=== PATIENT | male | born 1940 | race Caucasian/White ===

== ENCOUNTER 2016-10-23 10:23 | Inpatient (IN) | payer OTHER ==
[~2016-10-23] VITALS: Ht 172.7 cm; Wt 65.8 kg
[~2016-10-23 10:23] MED LIST: ARICEPT PO; CLINDAMYCIN HC300 MG PO; FER300 PO; LAC PO; NEU300 PO; NOR5
--- NOTE | 2016-10-23 11:17 | NUR ---
C/O UNABLE TO WALK TODAY, BILATERAL HAND SHAKING, GENERALIZED WEAKNESS AND PROGRESSIVELY GETTING WORSE, HX PARKINSON'S, LABS DRAWN AND SENT TO LAB
--- NOTE | 2016-10-23 11:18 | NUR ---
20 G SL RIGHT AC, PATENT
[2016-10-23 11:46] LABS: PLATELET COUNT 285 x10^3mcL (130-400); RED CELL DISTRIBUTION WIDTH 13.8 % (11.5-14.5)
[2016-10-23 11:58] LABS: ALBUMIN 3.6 g/dL (3.4-5.0); ALKALINE PHOSPHATASE 85 U/L (46-116); ALT/SGPT 18 U/L (16-63); AST/SGOT 19 U/L (15-37); BILIRUBIN TOTAL 0.54 mg/dL (0.20-1.00); CALCIUM 8.4 mg/dL (8.5-10.1); CARBON DIOXIDE 26.1 mmol/L (21-32); CHLORIDE SERUM 102 mmol/L (98-107); GLUCOSE SERUM 109 mg/dL (74-106); SODIUM SERUM 137 mmol/L (136-145); TOTAL PROTEIN, SERUM 7.4 g/dL (6.4-8.2)
[2016-10-23 12:01] LABS: microscopic required? YES; urine erythrocyte TRACE (NEGATIVE)
[2016-10-23 12:01] LABS: POTASSIUM SERUM 2.9 mmol/L (3.5-5.1)
--- NOTE | 2016-10-23 12:07 | NUR ---
RESTING COMFORTABLY, DENIES PAIN OR SOB
[2016-10-23 12:19] LABS: BAND NEUTROPHIL 4 % (0-10); BASOPHIL 0 % (0-2); MONOCYTE 1 % (0-7); SEGMENTED NEUTROPHILS 91 % (37-75)
[2016-10-23 12:20] LABS: PLATELET MORPHOLOGY PLATELETS NORMAL; rbc morphology (normal/abnorm) ABNORMAL (NORMAL)
[2016-10-23 12:59] LABS: CK-MB 0.5 ng/mL (0-3.6)
--- NOTE | 2016-10-23 14:00 | NUR ---
RESTING COMFORTABLY, DENIES PAIN OR SOB
[2016-10-23 15:05] VITALS: BP 128/61
--- NOTE | 2016-10-23 15:10 | NUR ---
RECEIVED PT FROM ED VIA JOSÉ. ORIENTED PT TO ROOM AND SURROUNDINGS. IV NOTED TO RAC PATENT AND INTACT .TELE 3 PLACED ON PT READING NSR. INSTRUCTED PT ON THE USE OF CALL LIGHT FOR ASSISTANCE. ENDORSED PT TO PRIMARY NURSE KEVIN
--- NOTE | 2016-10-23 15:18 | NUR ---
RESUME CARE. COOOLING MEASURES INITIATED.
--- NOTE | 2016-10-23 15:32 | NUR ---
TEMP 102.4, TYLENOL GIVEN AND COOLING MEASURES MAINTAINED.
[2016-10-23 16:00] LABS: MAGNESIUM 1.7 mg/dL (1.8-2.4); PHOSPHOROUS 1.9 mg/dL (2.5-4.9)
[2016-10-23 16:03] LABS: T3 TOTAL 0.97 ng/mL
[2016-10-23 16:11] LABS: FREE T4 1.23 ng/dL (0.76-1.46); FREE THYROXINE INDEX 3.5 ug/dL (1.4-4.5); T4(THYROXINE) 9.6 ug/dL (4.7-13.3)
[2016-10-23 16:16] LABS: CHOLESTEROL/HDL RATIO 2.5
--- NOTE | 2016-10-23 17:47 | NUR ---
TOLERATED MEDICATION WELL. AT BEDSIDE. NO DISTRESS NOTED
[2016-10-23 18:34] VITALS: BP 125/71
--- NOTE | 2016-10-23 19:10 | NUR ---
NURSING CO-SIGN THE DOCUMENTATION ENTERED BY THE RN DEVIN HAS BEEN REVIEWED. REVIEWED/CO-SIGNED BY: Samra Montiel DOCUMENTATION DONE BY:BERTO SHARPE
--- NOTE | 2016-10-23 19:27 | NUR ---
PT RESTING. NO DISTRESS NOTED, NO SOB NOTED WILL ENDORSE TO NIGHT NURSE
--- NOTE | 2016-10-23 19:30 | NUR ---
PT APPEARS SLIGHTLY DROWSY, BUT AROUSABLE. VERBAL IN MONTSERRATIAN WITH CLEAR SPEECH. AOX3. 98% RA. DENIES ANY SOB. LUNGS CLEAR BILATERALLY. NO S/S OF RESPIRATORY DISTRESS NOTED. DENIES ANY CHEST PAIN. ON TELE 3, SR WITH 1ST DEGREE. BOWEL SOUNDS ACTIVE. ABD SOFT AND FLAT. SKIN WARM AND DRY. IV TO RIGHT AC PATENT AND INTACT. NO S/S OF INFECTION NOTED. NOTED WITH 1+ EDEMA TO BLE. PULSES PALPABLE. DENIES ANY PAIN AT THIS TIME. NO S/S OF DISTRESS NOTED. CALL LIGHT WITHIN REACH. WILL CONTINUE TO MONITOR.
[2016-10-23 21:57] VITALS: BP 155/73
[2016-10-23 23:38] VITALS: BP 120/60
--- NOTE | 2016-10-23 23:44 | NUR ---
NOTED PT HAVE 13 SEC RUN OF VTACH. PT ALERT AND VERBAL. DENIES ANY CHEST PAIN. NO S/S OF DISTRESS NOTED. IV PATENT AND INFUSING WELL. COOLING MEASURES IN PLACE. VS: T 102.0, TX 81, BP 120/60, MAP 75, 95% RA. DR. JHA NOTIFIED AND AWARE.
--- NOTE | 2016-10-24 00:34 | NUR ---
PT RESTING IN BED WITH EYES CLOSED. BREATHING EQUAL AND UNLABORED. NO S/S OF RESPIRATORY DISTRESS NOTED. IV PATENT AND INFUSING WELL. RECHECKED TEMP 98.4. NO S/S OF DISTRESS OR DISCOMFORT NOTED AT THIS TIME. CALL LIGHT WITHIN REACH. WILL CONTINUE TO MONITOR.
[2016-10-24 01:22] LABS: CALCIUM 7.7 mg/dL (8.5-10.1); CARBON DIOXIDE 24.1 mmol/L (21-32); CHLORIDE SERUM 108 mmol/L (98-107); CREATININE SERUM 0.9 mg/dL (0.7-1.3); GLUCOSE SERUM 104 mg/dL (74-106); POTASSIUM SERUM 3.6 mmol/L (3.5-5.1); SODIUM SERUM 137 mmol/L (136-145)
--- NOTE | 2016-10-24 02:20 | NUR ---
DR. JHA NOTIFIED AND AWARE OF PT'S POTASSIUM LEVEL 3.6. LAST DOSE POTASSIUM NOT GIVEN D/T POTASSIUM LEVEL NORMAL PER DR. JHA.
[2016-10-24 05:28] VITALS: BP 152/55
--- NOTE | 2016-10-24 05:56 | NUR ---
PT SLEPT WELL THROUGH THE NIGHT. BREATHING EQUAL AND UNLABORED. NO S/S OF RESPIRATORY DISTRESS NOTED ON ROOM AIR. IV PATENT AND INFUSING WELL. NO S/S OF DISTRESS NOTED. GOOD PERICARE RENDERED. REPOSITIONED FOR COMFORT. RESTING WITH RELAXED FACIAL FEATURES. CALL LIGHT WITHIN REACH. WILL CONTINUE TO MONITOR.
[2016-10-24 06:46] LABS: BASOPHIL % 0 % (0-2); CALCIUM 7.9 mg/dL (8.5-10.1); CARBON DIOXIDE 26.5 mmol/L (21-32); CHLORIDE SERUM 108 mmol/L (98-107); CREATININE SERUM 0.8 mg/dL (0.7-1.3); GLUCOSE SERUM 96 mg/dL (74-106); MAGNESIUM 2.1 mg/dL (1.8-2.4); PHOSPHOROUS 2.2 mg/dL (2.5-4.9); PLATELET COUNT 235 x10^3mcL (130-400); POTASSIUM SERUM 3.9 mmol/L (3.5-5.1); SODIUM SERUM 136 mmol/L (136-145)
--- NOTE | 2016-10-24 07:25 | NUR ---
RECEIVED Pt. AAOX3, RESPIRATIONS EVEN AND UNLABORED. DENIES PAIN/DISCOMFORT. NO DISTRESS NOTED. TELE IN PLACE 1ST DEGREE AV BLOCK HR 80 DENIES CHEST PAIN/PRESSURE. IVF RUNNING TO IV AT RIGHT AC PATENT AND INTACT. RIGHT HAND SHAKINESS NOTED. BED LOW/LOCKED. CALL LIGHT IN REACH. WILL CONTINUE TO MONITOR.
[2016-10-24 10:00] VITALS: BP 158/80
--- NOTE | 2016-10-24 10:39 | NUR ---
Pt. TEMP OF 100.4, COOLING MEASURES STARTED AND TYLENOL ADMINISTERED PER EMAR.
[2016-10-24] MEDS ORDERED: VITAMIN D32000 I2 PO (10:46)
[2016-10-24] MEDS ORDERED: FUROSEMIDE20 MG PO (10:47)
[2016-10-24] MEDS ORDERED: SINEMET 25-1001 TAB PO (10:48)
[2016-10-24] MEDS ORDERED: TAMSULOSIN HYD0.4 M1 PO (10:50)
[2016-10-24] MEDS ORDERED: MYS50 PO (10:51)
--- NOTE | 2016-10-24 12:20 | NUR ---
RECHECKED TEMP AND WENT DOWN TO 99.9, COOLING MEASURES STILL IN PLACE.
--- NOTE | 2016-10-24 13:00 | NUR ---
Pt. C/O DRY EYES NOTIFIED DR. WILSON AWAITING ORDERS.
[2016-10-24 14:18] VITALS: BP 125/66
--- NOTE | 2016-10-24 16:54 | NUR ---
Pt. C/O DRY EYES ARTIFICIAL TEARS ADMINISTERED BOTH EYES PER EMAR, Pt. VERBALIZED RELIEF.
[2016-10-24 18:14] VITALS: BP 132/78
--- NOTE | 2016-10-24 18:16 | NUR ---
Pt. AAOX3 RESPIRATIONS EVEN AND UNLABORED. DENIES PAIN/DISCOMFORT. NO DISTRESS NOTED. IVF RUNNING TO IV AT LEFT AC PATENT AND INTACT. TELE IN PLACE. RUE SHAKINESS STILL NOTED, SINEMET ADMINISTERED PER EMAR. SPOUSE AT BEDSIDE. TOLERATED DIET WELL, BED LOW/LOCKED. CALL LIGHT IN REACH.
--- NOTE | 2016-10-24 19:44 | NUR ---
RECEIVED PT FROM PREVIOUS SHIFT. PT A/OX4. SITTING UP IN CHAIR AT BEDSIDE. DENIES PAIN. DENIES SOB ON RA. IV PATENT AND INFUSING WELL WITH NO S/S OF INFILTRATION. CALL LIGHT WITHIN REACH, BED IN LOW POSITION. WILL CONTINUE TO MONITOR.
[2016-10-24 21:47] VITALS: BP 167/84
--- NOTE | 2016-10-25 01:01 | NUR ---
PT RESTING AT THIS TIME IN NO ACUTE DISTRESS. RR EVEN AND UNLABORED. IV PATENT. CALL LIGHT WITHIN REACH, BED IN LOW POSITION. WILL CONTINUE TO MONITOR.
--- NOTE | 2016-10-25 06:01 | NUR ---
NITRO GIVEN SL FOR BP 178/91 PRN PER EMAR. WILL CONTINUE TO MONITOR
--- NOTE | 2016-10-25 06:40 | NUR ---
BP 171/88 AFTER NITRO ADMINISTRATION. PT DENIES PAIN. DENIES ALEGRIA. PAGEGATE SENT TO DR JHA AT THIS TIME, WILL CONTINUE TO MONITOR.A
--- NOTE | 2016-10-25 07:20 | NUR ---
RECEIVED PT IN BED A/A/OX4 DENIES ALEGRIA. PT NOTED WITH TREMORS GREATER TO RT ARM, WITH HX OF PARKINSONS. RESP EVEN AND UNLABORED WITH CLEAR BS BILAT. DENIES ANY SOB/CP/PRESSURE AT THIS TIME. NOTED WITH TRACE EDEMA TO BLE. IVF NS AT 100ML/HR TO RAC. ABD SOFT, NONTENDER WITH ACTIVE BS X4. DENIES ANY N/V AT THIS TIME. VOIDING FREELY WITH OCC STRESS INCONTINENCE. NOTED WITH SMALL DRY SKIN TEAR TO LLE BELOW KNEE. AMBULATORY WITH ASSISTANCE, UP WITH PT. CALL LIGHT IN REACH NEEDS ATTENDED TO.
--- NOTE | 2016-10-25 09:25 | NUR ---
NOTIFIED ATTENDING DR. WILSON THAT PT HAS ELEVATION IN B/P, BUT HOME MEDS FOR HTN WHERE NOT CONTINUED. MD TO REVIEW MEDS AND ORDER ACCORDINGLY. WILL CONT TO MONITOR.
[2016-10-25 09:59] VITALS: BP 165/86
--- NOTE | 2016-10-25 10:10 | NUR ---
MESSAGE SENT TO DR. WILSON VIA PAGE GATE TO INQUIRE ABOUT B/P MES. MADE AWARE LATEST B/P 165/86. AWAITING ORDERS.
[2016-10-25 11:15] VITALS: Ht 172.7 cm; Wt 65.8 kg
[2016-10-25 14:35] VITALS: BP 144/80
--- NOTE | 2016-10-25 16:30 | NUR ---
PT RESTING AT THIS TIME. DENIES ANY DISCOMFORT. CALL LIGHT IN REACH NEEDS ATTENDED TO.
[2016-10-25 18:02] VITALS: BP 156/77
--- NOTE | 2016-10-25 18:30 | NUR ---
PT RESTING COMFORTABLY AT THIS TIME. DENIES ANY DISCOMFORT. CALL LIGHT IN REACH NEEDS ATTENDED TO. IVF INFUSING. CALL LIGHT IN REACH NEEDS ATTENDED TO.
--- NOTE | 2016-10-25 19:45 | NUR ---
PT. AWAKE, ALERT, ORIENTED X4. SITTING UP IN CHAIR NEXT TO BED. DENIES HEADACHE OR DIZZINESS. BREATH SOUNDS CLEAR THROUGHOUT LUNG LUNA, RESP. EVEN, UNLABORED. NO SOB NOTED.TRACE EDEMA TO BLE. PEDAL PULSES MODERATE. ABD. SOFT AND ROUND, BOWEL SOUNDS ACTIVE. DENIES ABD. PAIN, DENIES NAUSEA. IVF INFUSING WELL, SITE WNL. CALL LIGHT WITHIN REACH. SON AT BEDSIDE.
[2016-10-25 22:00] VITALS: BP 143/73
[2016-10-26 05:47] VITALS: BP 137/83
[2016-10-26 06:20] LABS: BASOPHIL % 0.7 % (0-2); PLATELET COUNT 286 x10^3mcL (130-400); RED CELL DISTRIBUTION WIDTH 14.1 % (11.5-14.5)
[2016-10-26 06:34] LABS: CALCIUM 8.6 mg/dL (8.5-10.1); CARBON DIOXIDE 26.4 mmol/L (21-32); CHLORIDE SERUM 108 mmol/L (98-107); CREATININE SERUM 0.9 mg/dL (0.7-1.3); GLUCOSE SERUM 97 mg/dL (74-106); PHOSPHOROUS 2.8 mg/dL (2.5-4.9); POTASSIUM SERUM 3.7 mmol/L (3.5-5.1); SODIUM SERUM 143 mmol/L (136-145)
--- NOTE | 2016-10-26 06:34 | NUR ---
PT. HAD UNEVENTFUL NIGHT. NO C/O PAIN THROUGHOUT NIGHT. PT. SITTING UP IN CHAIR AT BEDSIDE. PT. ADVICED THAT SITTING IN CHAIR TOO LONG WILL ADD TO THE SWELLING IN HIS BLE. PT. VERBALIZED UNDERSTANDING. RECEIVED NEW ORDERS TO DECREASE IVF RATE TO 30CC/HR. CALL LIGHT WITHIN REACH. WILL ENDORSE PT. CARE TO INCOMING NURSE.
--- NOTE | 2016-10-26 07:40 | NUR ---
RC'D PT SITTING IN CHAIR WITH NO APPARENT SIGNS OF DISTRESS. A/A/O/X4, SPEECH CLEAR AND AAPPROPRIATE. ON TELE 3 WTIH SR WITH 1ST DEGREE BLOCK. PALP PULSES, BLE TRACE EDEMA PRESENT. RESPIRATIONS EQUAL AND UNLABORED BILAT. LUNGS CLEAR TO AUSCULTATION. DENIES SOB. ACTIVE BS. ABDOMEN SOFT AND NONTENDER. DENIES N/V. VOIDS FREELY, PT REPORTS SLIGHT DISCOMFORT AT TIMES. [place] [facility] [place]. FINE TREMORS NOTED TO BUE. SKIN W/D. SKIN TEAR NOTED TO LLE WITH OLD SCAB PRESENT, JANICE. PT DENIES PAIN AT THIS TIME. IV RUNNING NS AT 30ML/HR, WNL. PT IS CALM AND COOPERATIVE. ROOM FREE OF CLUTTER. PT EDUCATED ON USING CALL LIGHT WHEN NEEDING ASSISTANCE OUT OF BED. CALL LIGHT IN REACH. WILL CONTINUE TO MONITOR.
--- NOTE | 2016-10-26 07:43 | NUR ---
echocardiogram pending- patient with tray
[2016-10-26 09:28] VITALS: BP 149/88
--- NOTE | 2016-10-26 10:19 | NUR ---
PHYSICAL THERAPY DAILY NOTES CO-SIGN All documentation done by the Driving School Instructor for 10/25/16 has been reviewed. I agree with the documentation. Reviewed/Co-Signed by: Arleth Baldwin PT Documentation Done by:DEBORAH MAYNARD LOCKMAKER POC REVIEWED W/ LOCKMAKER; WILL BENEFIT W/ P.T. AFTER ACUTE STAY.
[2016-10-26] MEDS ORDERED: MAC100 PO (14:16)
[2016-10-26] MEDS ORDERED: BD LACTINEX1.4 MG PO (14:17)
[2016-10-26 15:07] VITALS: BP 149/88
--- NOTE | 2016-10-26 16:04 | NUR ---
PT RESTING IN CHAIR WITH FAMILY PRESENT AT BEDSIDE. NO APPARENT SIGNS OF DISTRESS. CALL LIGHT IN REACH. WILL CONTINUE TO MONITOR.
--- NOTE | 2016-10-26 16:32 | NUR ---
PHYSICAL THERAPY DAILY NOTES CO-SIGN All documentation done by the Cnc Router Operator for 10/26/16 has been reviewed. I agree with the documentation. Reviewed/Co-Signed by: Arleth Baldwin PT Documentation Done by:DEBORAH MAYNARD O AND M SUPERVISOR POC REVIEWED W/ O AND M SUPERVISOR.
--- NOTE | 2016-10-26 16:50 | NUR ---
PT PROVIDED WITH DC HOME INSTRUCTIONS. GIVEN MEDICATION EDUCATION. MADE AWARE PRESCRIPTIONS HAVE BEEN SENT TO PT'S SELECTED PHARMACY. MADE AWARE OF FOLLOW UP APPT WITH PCP. INSTRUCTED ON IMPORTANCE OF COMPLETING ANTIBIOTIC TX ORDERED. MADE AWARE OF WORSENING SIGNS AND SYMPTOMS TO RETURN TO ED OR REPORT TO PCP. PT VERBALIZED UNDERSTANDING OF INSTRUCTIONS. TELE AND IV DC'D, CATHETER INTACT. PT TRANSPORTED VIA WC TO THE LOBBY WITH ALL PERSONAL BELONGINGS IN HAND ACCOMPANIED BY DIMENSION WAREHOUSE SUPERVISOR AND FAMILY. FREE OF ANY APPARENT DISTRESS.
== END 2016-10-26 16:56 | disposition home health service, planned readmission (86) | DRG 689 ==
LOC: ED 10:23 → DU 13:58
PROVIDERS: Emergency Medicine; Family Medicine; ADMIT Family Medicine
DX: N39.0 Urinary tract infection, site not specified (principal); N17.0 Acute kidney failure with tubular necrosis; I50.43 Acute on chronic combined systolic (congestive) and diastolic (congestive) heart failure; E87.6 Hypokalemia; G20 Parkinson's disease; E83.39 Other disorders of phosphorus metabolism; E83.42 Hypomagnesemia; E83.51 Hypocalcemia; I11.0 Hypertensive heart disease with heart failure; R73.03 Prediabetes; D64.9 Anemia, unspecified; N40.0 Benign prostatic hyperplasia without lower urinary tract symptoms; Z68.22 Body mass index [BMI] 22.0-22.9, adult
CPT/HCPCS: 82962; 83880; 84439; 97110-GP; 97116-GP; 97530-GP; J0696; J3475; J3480; J7030; Q0092

== ENCOUNTER 2018-09-03 11:41 | Inpatient (IN) | payer OTHER ==
[~2018-09-03] VITALS: Ht 170.2 cm; Wt 79.8 kg
[~2018-09-03 11:41] MED LIST changes: +BD LACTINEX1.4 MG PO; +FUROSEMIDE20 MG PO; +MAC100 PO; +MYS50 PO; +SINEMET 25-1001 TAB PO; +TAMSULOSIN HYD0.4 M1 PO; +VITAMIN D32000 I2 PO
[2018-09-03 11:53] VITALS: Ht 170.2 cm; Wt 79.8 kg
--- NOTE | 2018-09-03 12:17 | NUR ---
PT HAS LOWER EXTREM GEN WEAKNESS WITH DRY FLAKY SKIN AND +4 PITTING EDEMA. PULSES SCANT DUE TO SWELLING AND CAP REFILL > 3 SEC. PER FAMILY AT BEDSIDE PT HAS BECOME INCREASED GEN WEAKNESS FOR OVER THE LAST WEEK. PT COLD SPRINGS AND HAS HX OF PARKINSONS AND TREMORS NORMAL PER FAMILY. AWAITING MD MATHIAS PT CONNECTED TO PANEL MACHINE SETTER AND VSS UPON ARRIVAL. ARRIVED TO BED BY W/C
--- NOTE | 2018-09-03 12:50 | NUR ---
DR PARRISH AT BEDSIDE FOR EVAL
[2018-09-03 12:58] LABS: microscopic required? NO
[2018-09-03 13:12] LABS: CALCIUM 8.3 mg/dL (8.5-10.1); CARBON DIOXIDE 30.4 mmol/L (21-32); CHLORIDE SERUM 108 mmol/L (98-107); GLUCOSE SERUM 131 mg/dL (74-106); POTASSIUM SERUM 3.5 mmol/L (3.5-5.1); SODIUM SERUM 145 mmol/L (136-145)
[2018-09-03 13:13] LABS: BASOPHIL % 0.8 % (0-2); PLATELET COUNT 273 x10^3mcL (130-400); RED CELL DISTRIBUTION WIDTH 13.9 % (11.5-14.5)
[2018-09-03 13:25] LABS: ALKALINE PHOSPHATASE 72 U/L (46-116); ALT/SGPT 31 U/L (16-63); AST/SGOT 36 U/L (15-37); BILIRUBIN TOTAL 0.4 mg/dL (0.20-1.00); FREE T4 1.21 ng/dL (0.76-1.46); TOTAL PROTEIN, SERUM 6.4 g/dL (6.4-8.2)
[2018-09-03 13:27] LABS: ALBUMIN 3.2 g/dL (3.4-5.0)
[2018-09-03 13:53] LABS: urine erythrocyte NEGATIVE (NEGATIVE)
--- NOTE | 2018-09-03 15:17 | NUR ---
US AT BEDSIDE
--- NOTE | 2018-09-03 15:49 | NUR ---
BP 213/97 DR PARRISH AWARE AND IN TO TALK WITH PT
--- NOTE | 2018-09-03 17:01 | NUR ---
JARVIS 170/76
--- NOTE | 2018-09-03 17:35 | NUR ---
BP NOW 120/67
--- NOTE | 2018-09-03 18:15 | NUR ---
PT TO BE TRANSFERRED TO [facility] AND PT AND FAMILY MEMBER AT BEDSIDE AWARE. AWAITING BED AT [facility]
[2018-09-03] MEDS ORDERED: LISINOPRIL2.5 MG (19:41)
--- NOTE | 2018-09-03 19:44 | NUR ---
REPORT GIVEN TO IGNACIA RETORT ENGINEER NURSE
--- NOTE | 2018-09-03 19:55 | NUR ---
RECEIVED PT VIA GUERNEY FROM E/D, ACCOMPANIED BY RN AND 2 TRANSPORTERS. PT A/A/O X 2 (PERSON, PURPOSE), K[place]AK[place]-SPEAKING, CALM, COOPERATIVE; NOTED OU POOR VISION AND CLEAR DRAINAGE, UNABLE TO KEEP EYES OPEN WIDE. GENERALIZED WEAKNESS, USES W/C AT HOME, C/O INTERMITTENT SHARP PAIN TO BLE 6/10 EXACERBATED BY MOVEMENT, RELIEVED BY RESTING AND PAIN MEDICATION. MARIBEL RADIAL AND PEDAL PULSES PRESENT, BLE +4 PITTING EDEMA ANTONI TO FEET, CAP REFILL > 3 SECS, SCD BY BEDSIDE. BUE DISCOLORATION, DEVELOPER EVANGELIST, AND MARIBEL FEET DRY, FLAKY SKIN, DEVELOPER EVANGELIST. DENIES CHEST PAIN OR DISCOMFORT AT THIS TIME. NO ACUTE RESPIRATORY DISTRESS NOTED. VOIDS FREELY, EPISODES OF INCONTINENCE. IV SITE RFA 20G, CDI. ORIENTED PT TO ROOM, BED CONTROLS, CALL LIGHT SYSTEM. SIDE RAILS UP X 2, BED IN LOW POSITION. ROOM MAINTAINED CONTACT ISOLATION D/T HX MDRO E COLI OF URINE. WILL ENDORSE TO DANNIE HOWARD.
--- NOTE | 2018-09-03 20:05 | NUR ---
PT WHEELED UPSTAIRS TO TELE FLOOR TO ROOM 219A AND ESCORTED BY PETE COBURN AND CAMILLE PANDEY. NO INCIDENT NOTED
[2018-09-03 20:28] VITALS: BP 160/83
[2018-09-03 20:29] LABS: AMPHETAMINE QUAL UR NONE DETECTED (See below)
[2018-09-03 20:34] LABS: CHOLESTEROL/HDL RATIO 2.9; PHOSPHOROUS 3.7 mg/dL (2.5-4.9)
--- NOTE | 2018-09-03 23:13 | NUR ---
Resting at this time. No respiratory distress noted. Appears comfortable. All due meds given and tolerated. Scd in placed. Call light within reach. Will cont.to monitor.
--- NOTE | 2018-09-04 05:11 | NUR ---
Afebrile. No significant change in condition noted. No cues of pain. Weight shift assistance provided. Kept comfortable. In no apparent distress. Contact isolation, proper use of PPE and good hand hygiene observed.
[2018-09-04 06:10] VITALS: BP 160/85
[2018-09-04 06:21] LABS: BASOPHIL % 0.6 % (0-2); PLATELET COUNT 252 x10^3mcL (130-400); RED CELL DISTRIBUTION WIDTH 13.9 % (11.5-14.5)
--- NOTE | 2018-09-04 08:00 | NUR ---
ALERT TO SELF AND PLACE. MOSTLY JAPANESE SPEAKING. BREATHING FREELY ON RA. NO C/O PAIN. PULLED UP IN BED FOR BREAKFAST. NS INFUSING 100 CC HOUR TO RT FA. CONTACT ISOLATION FOR HX MDRO AND ECOLI URINE. NOTED HAND TREMORS. GENERALIZED WEAKNESS. WEARING SCD'S. CALL LIGHT WITHIN REACH. BED IN LOW POSITION. URINAL CLOSE BY. BED ALARM ON.
[2018-09-04 09:20] VITALS: BP 180/83
[2018-09-04 16:42] VITALS: BP 121/56
--- NOTE | 2018-09-04 18:52 | NUR ---
PT HAS BEEN CALM THIS SHIFT. NO C/O PAIN. UP WITH P.T. USING WALKER. UNSTEADY. CONTINUES TO HAVE GENERALIZED WEAKNESS. SS FOR SNF PLACEMENT. ASSIST WITH ALL ADL'S. CALL LIGHT WITHIIN REACH.NS INFUSING 100 CC HOUR.CONTACT ISO. WEARING SCD'S.
--- NOTE | 2018-09-04 19:29 | NUR ---
RECEIVED PT FROM DAY SHIFT RN. PT ALERT ORIENTED TO SELF, PT CONFUSED. MED SURG PT DENIES ANY PAIN. BREATHING EVEN AND UNLABORED ON RA WITH NO SOB NOTED. IV RFA PATENT,INFUSING WELL WITH NO SIGNS OF INFILTRATION NOTED. BLE EDEMA NOTED. SCDS IN PLACE. BUE ECCHYMOSIS. NO SIGNS OF ACUTE DISTRESS NOTED. CALL BUTTON WITHIN REACH. SAFETY PRECAUTIONS IN PLACE. WILL CONTINUE TO MONITOR.
[2018-09-04 20:13] VITALS: BP 137/62
--- NOTE | 2018-09-04 21:32 | NUR ---
PLACED PT ON TELE MONITOR #[id number] ORDERED. NSR PER MONITOR HR 63. NO SIGNS OF ACUTE DISTRESS.
--- NOTE | 2018-09-04 23:44 | NUR ---
PT RESTING. BREATHING EVEN AND UNLABORED, NO SIGNS OF DISTRESS NOTED. IV PATENT, INFUSING WELL. CALL BUTTON WITHIN REACH. SAFETY PRECAUTIONS IN PLACE. WILL CONTINUE TO MONITOR.
--- NOTE | 2018-09-05 01:57 | NUR ---
ROUNDS MADE, PT RESTING. PT BREATHING EVEN AND UNLABORED, NO SOB NOTED. IV PATENT, INFUSING WELL. NO SIGNS OF DISTRESS. CALL BUTTON WITHIN REACH. SAFETY PRECAUTIONS IN PLACE. WILL CONTINUE TO MONITOR.
--- NOTE | 2018-09-05 03:59 | NUR ---
PT AWAKE, DENIES PAIN. BREATHING EVEN AND UNLABORED. NO SIGNS OF DISTRESS NOTED. CALL BUTTON WITHIN REACH. SAFETY PRECAUTIONS IN PLACE. WILL CONTINUE TO MONITOR.
[2018-09-05 05:34] VITALS: BP 168/75
--- NOTE | 2018-09-05 06:00 | NUR ---
DR PACHECO MADE AWARE PT BP 168/75 WITH HR 52, NO NEW ORDERS AT THIS TIME.
--- NOTE | 2018-09-05 06:21 | NUR ---
PT SLEPT MOST OF THE NIGHT WITH NO SIGNS OF DISTRESS. BREATHING EVEN AND UNALBORED ON RA WITH NO SOB NOTED. IV PATENT, INFUSING WELL WITH NO SINGS OF INFILTRATION. TURN AND REPOSITIONED EVERY TWO HOURS AND NEEDED. MEDICATED PER EMAR. CALL BUTTON WITHIN REACH. SAFETY PRECAUTIONS IN PLACE. WILL CONTINUE TO MONITOR AND ENDORSE CARE TO DAY SHIFT RN.
[2018-09-05 06:27] LABS: BASOPHIL % 0.4 % (0-2); PLATELET COUNT 247 x10^3mcL (130-400); RED CELL DISTRIBUTION WIDTH 13.7 % (11.5-14.5)
--- NOTE | 2018-09-05 06:32 | NUR ---
PER DR PACHECO TO GIVE LISINOPRIL AT THIS TIME.
[2018-09-05 06:41] LABS: CALCIUM 8.3 mg/dL (8.5-10.1); CARBON DIOXIDE 26.9 mmol/L (21-32); CHLORIDE SERUM 105 mmol/L (98-107); CREATININE SERUM 0.8 mg/dL (0.7-1.3); GLUCOSE SERUM 93 mg/dL (74-106); MAGNESIUM 1.8 mg/dL (1.8-2.4); PHOSPHOROUS 3.3 mg/dL (2.5-4.9); POTASSIUM SERUM 3.7 mmol/L (3.5-5.1); SODIUM SERUM 141 mmol/L (136-145)
--- NOTE | 2018-09-05 07:30 | NUR ---
PT AWAKE, BREATHING EVEN AND UNLABORED. NO SIGNS OF DISTRESS NOTED. SAFETY PRECAUTIONS IN PLACE. ENDORSED CARE TO DAY SHIFT RN, ALL QUESTIONS ADDRESSED.
--- NOTE | 2018-09-05 07:39 | NUR ---
RECEIVED PATIENT FROM DANNIE DOE. PATIENT SEATED IN BED AT THIS TIME. A/OX1-2 PERSON, TIME. DENIES ANY PAIN AT THIS TIME. WILL CONTINUE TO MONITOR, NOTIFIED THAT PATIENT BP IS ELEVATED WHILE HR IS LOW. DR DEJESUS AWARE. WILL RECHECK BP. CALL LIGHT IN REACH AT THIS TIME.
[2018-09-05 07:53] VITALS: BP 188/81
--- NOTE | 2018-09-05 10:05 | NUR ---
DR MCCONNELL AND DR HILL IN TO SPEAK WITH PATIENT. MARINO CROW PRESENT FOR TRANSLATION. POSSIBLE DC TODAY TO SNF PENDING CASE MANAGEMENT. PATIENT VERBALIZES UNDERSTANDING. MILD COMPLAINTS OF LEG NUMBESS, REPOSITIONED PATIENT AND DR MCCONNELL AWARE. CALL LIGHT IN REACH AT THIS TIME.
[2018-09-05 12:13] VITALS: BP 147/62
--- NOTE | 2018-09-05 13:01 | NUR ---
PATIENT IN BED RESTING. AT BEDSIDE. NO SIGNS OF PAIN OR DISTRESS. AWAITING FOR CAUSTIC PLANT WORKER RAFA TO COMPLETE ARRANGEMENTS TO SNF. CALL LIGHT IN REACH AT THIS TIME.
[2018-09-05 13:34] VITALS: BP 147/62
[2018-09-05] MEDS ORDERED: GABAPENTIN100 M2 PO (14:40)
--- NOTE | 2018-09-05 16:23 | NUR ---
[facility]SP[facility] IN TO GREEN ENERGY MARKETING ANALYST PATIENT. REPORT GIVEN TO TRANSPORT & NURSE TERRANCE AT [facility]. PATIENT TELEMETRY REMOVED AND RETURNED TO [facility]. TRANSFER PAPERS SIGNED BY PATIENT AND PATIENT . PATIENT HAS COMPLAINTS OF PAIN IN BLE AND PRN MORPHINE 2 MG IVP ADMINISTERED. PATIENT WITH PATIENT BELONGINGS AND COPIES OF TRANFERS PACKET. PATIENT VIA [facility] OFF UNIT WITH [facility], TRANSPORT GIVEN PATIENT PACKET.
== END 2018-09-05 17:47 | DRG 57 ==
LOC: ED 11:41 → MU 18:45 → DU 09-04 21:30
PROVIDERS: Emergency Medicine; ADMIT Internal Medicine
DX: G20 Parkinson's disease (principal); E44.0 Moderate protein-calorie malnutrition; F02.80 Dementia in other diseases classified elsewhere, unspecified severity, without behavioral disturbance, psychotic disturbance, mood disturbance, and anxiety; M62.59 Muscle wasting and atrophy, not elsewhere classified, multiple sites; I10 Essential (primary) hypertension; D64.9 Anemia, unspecified; Z68.27 Body mass index [BMI] 27.0-27.9, adult
CPT/HCPCS: 83880; 84439; 97116-GP; G0378; J2270; J7030; Q0092

== ENCOUNTER 2019-02-02 12:03 | Emergency (ER) | payer OTHER ==
[~2019-02-02] VITALS: Ht 167.6 cm; Wt 68.0 kg
[~2019-02-02 12:03] MED LIST changes: +GABAPENTIN100 M2 PO; +LISINOPRIL2.5 MG
[2019-02-02 12:24] VITALS: Ht 167.6 cm; Wt 68.0 kg
[2019-02-02 14:11] LABS: CALCIUM 8.2 mg/dL (8.5-10.1); CARBON DIOXIDE 28.7 mmol/L (21-32); CHLORIDE SERUM 106 mmol/L (98-107); CREATININE SERUM 1.1 mg/dL (0.7-1.3); GLUCOSE SERUM 150 mg/dL (74-106); POTASSIUM SERUM 3.8 mmol/L (3.5-5.1); SODIUM SERUM 143 mmol/L (136-145)
[2019-02-02 14:16] LABS: ALKALINE PHOSPHATASE 86 U/L (46-116); ALT/SGPT 22 U/L (16-63); AST/SGOT 35 U/L (15-37); BILIRUBIN TOTAL 0.4 mg/dL (0.20-1.00); CHOLESTEROL 175 mg/dL (<200); TOTAL PROTEIN, SERUM 6.7 g/dL (6.4-8.2)
[2019-02-02 14:20] LABS: BASOPHIL % 0.4 % (0-2); PLATELET COUNT 322 x10^3mcL (130-400); RED CELL DISTRIBUTION WIDTH 13.8 % (11.5-14.5)
[2019-02-02 14:24] LABS: ALBUMIN 3.2 g/dL (3.4-5.0); HDL CHOLESTEROL 69 mg/dL (40-60)
[2019-02-02 16:28] LABS: microscopic required? NO
[2019-02-02 16:45] LABS: urine erythrocyte NEGATIVE (NEGATIVE)
[2019-02-02 22:01] VITALS: BP 157/68
== END 2019-02-03 01:08 | disposition home or self-care (01) ==
LOC: ED 12:03
PROVIDERS: Emergency Medicine
DX: E86.0 Dehydration (principal); R53.1 Weakness; G20 Parkinson's disease; F02.81 Dementia in other diseases classified elsewhere, unspecified severity, with behavioral disturbance; I10 Essential (primary) hypertension; W18.39XA Other fall on same level, initial encounter; Y93.89 Activity, other specified; Y92.89 Other specified places as the place of occurrence of the external cause; Y99.8 Other external cause status
CPT/HCPCS: J7030